=== PATIENT | female | born 1960 | race Caucasian/White ===

== ENCOUNTER 2017-01-11 12:15 | Inpatient (IN) | payer BC, OTHER ==
[~2017-01-11] VITALS: Ht 165.1 cm; Wt 56.7 kg
[~2017-01-11 12:15] MED LIST: AMLO10TA2 PO; Metoprolol Tartrate PO; VALS160T2 PO
[2017-01-11] MEDS ORDERED: MAG HYDROX/AL HYDROX/SIMETH 30 ML LIQUID UDC PO PRN (15:00)
[2017-01-11] MEDS ORDERED: THIAMINE HCL 200 MG/2 ML VIAL IM ONE (15:00)
[2017-01-11] MEDS ORDERED: LORAZEPAM 1 MG TABLET PO PRN ×2 (15:00)
[2017-01-11] MEDS ORDERED: LOPERAMIDE HCL 2 MG CAPSULE PO PRN ×2 (15:00)
[2017-01-11] MEDS ORDERED: MIRALAX 17 GM POWD.PACK PO PRN (15:00)
[2017-01-11] MEDS ORDERED: ACETAMINOPHEN 325 MG TABLET PO PRN (15:00)
[2017-01-11] MEDS ORDERED: ONDANSETRON ODT 4 MG TAB.RAPDIS SL PRN (15:00)
[2017-01-11] MEDS ORDERED: MAGNESIUM HYDROXIDE 30 ML LIQUID UDC PO PRN (15:00)
[2017-01-11] MEDS ORDERED: ONDANSETRON 4 MG/2 ML VIAL IM PRN (15:00)
[2017-01-11] MEDS ORDERED: LORAZEPAM 2 MG/1 ML VIAL IM PRN (15:00)
[2017-01-11] MEDS ORDERED: CLONIDINE HCL 0.1 MG TABLET PO PRN (15:00)
--- NOTE | 2017-01-11 15:00 | NUR ---
PRE-ADMISSION Pt is in intake office, pt reports relapsing 4 days ago. Pt reports drinking 750ml of wine daily, last this was 1000 01/11/17. Pt has clear speech, A/O x2 and stable to come on unit. V/S are wnl. To continue assessment when pt is on unit.
--- NOTE | 2017-01-11 15:15 | NUR ---
ADMISSION NOTE VS: BP: 125/68 HR:/110, SpO2: 99% RA, RR: 18, Temp: 98.2 Pain:0/10 Height:5'5" Weight: 125lb Allergies: SHAMIKA Pt is a 56 y/o female admitted to [facility] on 01/11/17 at 1510. Pt is under the care of for ETOH withdrawals. Pt reports relapsing 4 days ago due to a job loss. Pt denies suicidal and homicidal ideations at this time. Pt denies Chest Pain and SOB, RR even and unlabored. Patient did not bring any home medications. Pt reports living alone but has a support system . Upon assessment pt's skin has abrasion on left arm and on right wen related to a fall prior to admission. CIWA is 4, mild tremors and anxiety noted. Alert and oriented x4. Pt is Full Code. VS WNL, Regular Diet. Pt denies having any seizures in the past . Pt denies having a PCP at this time. Breathing is even and unlabored, SpO2 is 98% on RA. Pt ambulates with steady gait. Patient denies smoking cigarettes. UDS is positive for benzos and blood alcohol level is 0.17%. Pt reports being in the ER 2 days ago where she received Librium. All needs have been met. Pt has been oriented to the room and the unit. All safety measures in place per hospital policy. Bed in lowest position, side rails up x2 and padded, call-light within reach. Pt is on PRNs only. Will continue to monitor. Substance Abuse: ETOH: 1 bottle (750 ml) champagne daily for the past 4 days, pt reports drinking 185ml of chardonnay prior to admission.
[2017-01-11 15:31] LABS: BILIRUBIN,TOTAL 0.2 mg/dL (0.2-1.0); CREATININE 0.9 mg/dL (0.6-1.3); MAGNESIUM 2.1 mg/dL (1.8-2.4); POTASSIUM 4.8 mmol/L (3.5-5.1); TOTAL PROTEIN, SERUM 7.6 g/dL (6.4-8.2)
[2017-01-11 15:37] LABS: BASOPHILS % (AUTO) 0.5 % (0.0-2.0); EOSINOPHILS # (AUTO) 0.1 K/uL (0.0-0.7); EOSINOPHILS % (AUTO) 1.5 % (0.0-7.0); HEMATOCRIT 45.6 % (37-47); HEMOGLOBIN 15.3 G/DL (12.0-16.0); LYMPHOCYTES % (AUTO) 33.4 % (20.5-51.5); MEAN CORPUSCULAR HEMOGLOBIN 30.1 UUG (27.0-31.0); MEAN CORPUSCULAR HGB CONC 34 g/dL (32.0-37.0); MEAN CORPUSCULAR VOLUME 89.5 FL (81.0-99.0); MONOCYTES # (AUTO) 0.4 K/UL (0.1-1.30); MONOCYTES % (AUTO) 6.6 % (0.0-11.0); NEUTROPHILS # (AUTO) 3.5 K/UL (1.8-8.9); PLATELET COUNT (AUTO) 310 K/UL (150-450); RED BLOOD CELL COUNT(AUTO) 5.09 MIL/UL (4.2-5.4)
[2017-01-11 15:50] LABS: *URINE HCG, QUAL NEGATIVE (NEGATIVE)
[2017-01-11 16:07] LABS: *AMPHETAMINE, URINE NEGATIVE (NEGATIVE); *BARBITURATE, URINE NEGATIVE (NEGATIVE); *CANNABINOID, URINE NEGATIVE (NEGATIVE); *COCCAINE, URINE NEGATIVE (NEGATIVE); *OPIATE, URINE NEGATIVE (NEGATIVE); *PHENCYCLIDINE SCREEN,URINE NEGATIVE (NEGATIVE)
[2017-01-11 16:08] VITALS: BP 124/75
--- NOTE | 2017-01-11 16:15 | NUR ---
PRN CLONIDINE PRN Clonidine administered for restlessness, pt c/o of chills, and sweats. Will reassess.
--- NOTE | 2017-01-11 19:30 | NUR ---
START OF SHIFT PATIENT IS A 56 YEAR OLD FEMALE ADMITTED TO [facility] ON 01-11-17 FOR ALCOHOL DETOX. SHE IS A FULL CODE, ON A REGULAR DIET, WITH NKA. ON FALL AND SEIZURE PRECAUTIONS. PAST MEDICAL HISTORY OF MVP, AND DEPRESSION. PATIENT LAST CIWA 4 AT 1600. SAFETY MEASURES IN PLACE. BED LOCKED AND IN LOWEST POSITION WITH CALL LIGHT WITHIN REACH. REPORT RECEIVED FROM AM NURSE.
[2017-01-11] MEDS: IBUPROFEN 400 MG TABLET PO PRN (19:35)
--- NOTE | 2017-01-11 19:35 | NUR ---
PRN MEDICATION MOTRIN 400 MG PO GIVEN FOR HEADACHE OF A 6 OUT OF 10 AT 1935. EFFECT PENDING.
[2017-01-11] MEDS ORDERED: ALBU8HFA4 PO (19:43)
--- NOTE | 2017-01-11 19:45 | NUR ---
ASSESSMENT PATIENT WITH NOTED COUGHING. PATIENT REPORTS PMH OF ASTHMA. STATES SHE TAKES VENTOLIN INHALER AT HOME 2 PUFFS Q 4 HOURS PRN. LUNGS ASSESSED WITH EXPIRATORY WHEEZE IN ALL BASES POSTERIOR AND ANTERIOR. SPO2 99 % ON RA. CHARGE NURSE AND MD NOTIFIED.
[2017-01-11 20:00] VITALS: BP 120/87
[2017-01-11] MEDS ORDERED: PATIENT MAY USE OWN MED- MD OK INH PRN (20:15)
[2017-01-11] MEDS: diphenhydrAMINE 50 MG CAPSULE PO PRN (20:31)
--- NOTE | 2017-01-11 20:31 | NUR ---
PRN MEDICATION PATIENT RECEIVED IMMODIUM 4 MG PO AT 2030 FOR LIQUID STOOL LARGE AMOUNT. PATIENT RECEIVED BENADRYL 50 MG PO AT 2030 FOR INSOMNIA. EFFECTIVENESS PENDING
--- NOTE | 2017-01-11 20:35 | NUR ---
REASSESSMENT OF PATIENT PATIENT REPORTS DECREASE IN HEADACHE TO A 2 OUT OF 10. MOTRIN WITH NOTED EFFECTIVENESS.
[2017-01-11] MEDS ORDERED: ALBUTEROL SULFATE 8 GM HFA.AER.AD IH PRN (20:45)
[2017-01-11] MEDS ORDERED: LORAZEPAM 1 MG TABLET PO ONE (21:00)
--- NOTE | 2017-01-11 21:31 | NUR ---
REASSESSMENT OF PATIENT PATIENT WITH NO FURTHER EPISODES OF LIQUID STOOL/DIARRHEA. IMMODIUM WITH NOTED EFFECTIVENESS. PATIENT REMAINS AWAKE BUT STATES SHE IS BEGINNING TO FEEL SLEEPY. BENADRYL WITH FAIR EFFECT NOTED
--- NOTE | 2017-01-11 22:08 | NUR ---
RESPIRATORY THERAPY PRESENT WITH PATIENT
[2017-01-11] MEDS: ALBUTEROL SULFATE 2.5 MG/3 ML NEBU NEB PRN (22:09)
[2017-01-12] VITALS: BP 104/67
--- NOTE | 2017-01-12 | NUR ---
CIWA DEFERRED PATIENT RESTING COMFORTABLY IN BED WITH EYES CLOSED. VITAL SIGNS STABLE. CIWA DEFERRED FOR SLEEP.
[2017-01-12 04:00] VITALS: BP_SYST 101; BP_SYST 114; BP_DIAS 51; BP_DIAS 76
--- NOTE | 2017-01-12 04:00 | NUR ---
CIWA DEFERRED PATIENT VS AT 0400 BP 114/76, P 75, R 20, SPO2 99% ON RA. . PATIENT WITH BREATHING EVEN AND UNLABORED. NO NOTED SOB, WHEEZE. NO NOTED COUGHING. CIWA DEFERRED FOR SLEEP
[2017-01-12 06:05] LABS: HEPATITIS B SURFACE AG Negative (Negative)
--- NOTE | 2017-01-12 06:39 | NUR ---
END OF SHIFT PATIENT IS A 56 YEAR OLD FEMALE ADMITTED TO [facility] ON 01-11-17 FOR ALCOHOL DETOX. SHE IS A FULL CODE, ON A REGULAR DIET, WITH NKA. ON FALL AND SEIZURE PRECAUTIONS. PAST MEDICAL HISTORY OF MVP, AND DEPRESSION. VS AT 2000 120/87, P 110, SPO2 99% ON RA, R 18, T 98.7. PATIENT CIWA 10. PATIENT RECEIVED ATIVAN 2 MG X 1 TIME DOSE WELL BENADRYL 50 MG PO FOR INSOMNIA. PATIENT WITH NOTED EXPIRATORY WHEEZE IN ALL LUNG BASES POSTERIOR AND ANTERIOR WELL COUGH WITHOUT PRODUCTION. MD NOTIFIED. PATIENT WAS ORDERED ALBUTEROL NEBULIZER TREATMENT. RESPIRATORY THERAPIST ADMINISTERED NEBULIZER TREATMENT WITH GOOD EFFECT NOTED. PATIENT WITH NO FURTHER WHEEZING NOTED, AND REPORTED FEELING IMMEDIATE RELIEF. PATIENT VS AT 0000 BP 104/67, P 88, R 16, SPO2 94% ON RA, T 98.6. CIWA DEFERRED FOR SLEEP. PATIENT VS AT 0400 BP 114/76, P 75, R 20, SPO2 99% ON RA. CIWA DEFERRED FOR SLEEP. PATIENT INTAKE 1105 ML, OUTPUT 2 VOIDS, SLEPT TOTAL OF 7 HOURS. SAFETY MEASURES IN PLACE. BED LOCKED AND IN LOWEST POSITION WITH CALL LIGHT WITHIN REACH. REPORT GIVEN TO AM NURSE.
[2017-01-12] MEDS: ALBUTEROL SULFATE 2.5 MG/3 ML NEBU NEB PRN ×4 (07:03→20:18)
--- NOTE | 2017-01-12 07:14 | NUR ---
Start of shift note SBAR report rcv'd. Pt was admitted for ETOH dependence. Pt is a full code, on a regular diet, denies any allergies. Pt has a PMHx of a mitral valve prolapse, depression, and asthma, requiring multiple PRN breathing treatments. pt is on PRN medications to manage her s/s of withdrawal. Pt is currently resting in bed, pt has no complaints at this time. Will continue to monitor pt. All needs addressed at this time.
[2017-01-12 08:00] VITALS: BP 111/72
--- NOTE | 2017-01-12 08:15 | NUR ---
PRN administration Pt has a CIWA of 6, administered PRN ativan per MD order.
[2017-01-12] MEDS: THIAMINE HCL 100 MG TABLET PO SCH (08:17)
[2017-01-12] MEDS: MULTIVITAMINS,THERAPEUTIC TABLET PO SCH (08:17)
[2017-01-12] MEDS: FOLIC ACID 1 MG TABLET PO SCH (08:17)
--- NOTE | 2017-01-12 08:25 | NUR ---
MD communication Notified Dr Vera that pt has wheezing in bilateral lungs, SpO2 100% on RA, mild cough noted, pt is afebrile. Will continue to monitor pt.
[2017-01-12] MEDS ORDERED: TUBERCULIN,PURIF.PROT.DERIV. 5 TU/0.1 ML TEST ID ONE (09:00)
--- NOTE | 2017-01-12 09:15 | NUR ---
Reassessment Pt has a CIWA of 2 and states that the ativan was effective in "making me feel better". Will continue to monitor pt. All needs addressed at this time.
[2017-01-12] MEDS: VENLAFAXINE XR 75 MG CAP.SR.24H PO SCH (10:54)
[2017-01-12 12:00] VITALS: BP 121/84
[2017-01-12] MEDS ORDERED: NALT50TA PO (14:38)
[2017-01-12] MEDS ORDERED: ACAM333T8 PO (14:38)
[2017-01-12] MEDS ORDERED: AZITHROMYCIN 250 MG TABLET PO ONE (15:00)
[2017-01-12 16:00] VITALS: BP 128/80
--- NOTE | 2017-01-12 16:28 | NUR ---
Therapist prompted client about group times. Client stated she didn't go to groups today because she has bronchitis and is not feeling well.
--- NOTE | 2017-01-12 19:22 | NUR ---
End of shift Pt was admitted for ETOH dependence. Pt has a PMHx of a mitral valve prolapse, depression, and asthma, requiring multiple PRN breathing treatments. Pt is a full code, on a regular diet, denies any allergies. Pt is on PRN medications to manage her s/s of withdrawal. Pt required one PRN ativan in the morning with effectiveness. Pt is ambulating around the unit, pt has no complaints at this time. SBAR report given to oncoming nurse.
--- NOTE | 2017-01-12 19:30 | NUR ---
START OF SHIFT PATIENT IS A 56 YEAR OLD FEMALE ADMITTED TO [facility] ON 01-11-17 FOR ALCOHOL DETOX. SHE IS A FULL CODE, ON A REGULAR DIET, WITH NKA. ON FALL AND SEIZURE PRECAUTIONS. PAST MEDICAL HISTORY OF MVP, ASTHMA AND DEPRESSION. PATIENT LAST CIWA 3 AT 1600. PATIENT STARTED ON ZITHROMAX FOR URI. SAFETY MEASURES IN PLACE. BED LOCKED AND IN LOWEST POSITION WITH CALL LIGHT WITHIN REACH. REPORT RECEIVED FROM AM NURSE.
[2017-01-12 20:00] VITALS: BP 134/83
[2017-01-12] MEDS: diphenhydrAMINE 50 MG CAPSULE PO PRN (21:07)
[2017-01-12] MEDS: IBUPROFEN 400 MG TABLET PO PRN (21:07)
--- NOTE | 2017-01-12 21:07 | NUR ---
PRN MEDICATION BENADRYL 50 MG PO GIVEN AT 2106 FOR INSOMNIA. PATIENT GIVEN IBUPROFEN 400 MG PO AT 2106 FOR C/O BACK PAIN 4 OUT OF 10. EFFECT PENDING
--- NOTE | 2017-01-12 22:07 | NUR ---
REASSESSMENT OF PATIENT BENADRYL 50 MG PO GIVEN AT 2106 FOR INSOMNIA. PATIENT REASSESSED AFTER ONE HOUR WITH NOTED FAIR EFFECT. PATIENT STATES SHE IS FALLING ASLEEP, FEELS TIRED. PATIENT GIVEN IBUPROFEN 400 MG PO AT 2106 FOR C/O BACK PAIN 4 OUT OF 10. REASSESSED AFTER ONE HOUR. PATIENT REPORTS DECREASED BACK PAIN TO A 1 OUT OF 10.
--- NOTE | 2017-01-13 | NUR ---
CIWA DEFERRED/VITAL SIGNS REFUSED 0000 CIWA DEFERRED FOR SLEEP. PATIENT REFUSED VITAL SIGNS.
--- NOTE | 2017-01-13 04:14 | NUR ---
CIWA DEFERRED/VITAL SIGNS REFUSED 0400 CIWA DEFERRED FOR SLEEP. PATIENT REFUSED VITAL SIGNS.
--- NOTE | 2017-01-13 06:48 | NUR ---
END OF SHIFT PATIENT IS A 56 YEAR OLD FEMALE ADMITTED TO [facility] ON 01-11-17 FOR ALCOHOL DETOX. COMPLETED DETOX WITH ONLY PRN ATIVAN IN PLACE. SHE IS A FULL CODE, ON A REGULAR DIET, WITH NKA. ON FALL AND SEIZURE PRECAUTIONS. PAST MEDICAL HISTORY OF MVP, ASTHMA AND DEPRESSION. PATIENT STARTED ON ZITHROMAX FOR URI. RECEIVED ALBUTEROL NEB TREATMENT AT [address] PATIENT REPORTS FEELING MUCH BETTER. LUNGS CTA IN ALL BASES. PATIENT RECEIVED MOTRIN 400 MG PO AT 210 FOR BACK PAIN WITH GOOD EFFECT, PATIENT RECEIVED BENADRYL 50 MG PO AT 2107 FOR INSOMNIA WITH GOOD EFFECT. PATIENT ANXIOUS REGARDING DISCHARGE. VS AT 2000 BP 134/83, P 81, R 18, SPO2 97% ON RA, T 98.2 CIWA 3. VS AT 0000 AND 0400 REFUSED. CIWA DEFERRED. [id number] ML OUTPUT 1 VOID. SLEPT TOTAL OF 5 HOURS. SAFETY MEASURES IN PLACE. BED LOCKED AND IN LOWEST POSITION WITH CALL LIGHT WITHIN REACH. REPORT GIVEN TO AM NURSE.
--- NOTE | 2017-01-13 07:48 | NUR ---
Start of shift note; Received report from night nurse. Patient is a 56 year old female admitted on 01/11/17 for ETOH dependence. Patient reported history of mitral valve prolapse, depression, asthma, appendectomy. Patient is on full code status, on regular diet. Patient's last CIWA score is 3. PRN Benadryl given last night, noted to be effective. Patient is on fall and seizure precaution. Bed in lowest position, call light within reach. Will continue to monitor patient.
[2017-01-13 08:00] VITALS: BP 140/90
[2017-01-13] MEDS: FOLIC ACID 1 MG TABLET PO SCH (08:06)
[2017-01-13] MEDS: VENLAFAXINE XR 75 MG CAP.SR.24H PO SCH (08:06)
[2017-01-13] MEDS: LORATADINE 10 MG TABLET PO SCH (08:06)
[2017-01-13] MEDS: MULTIVITAMINS,THERAPEUTIC TABLET PO SCH (08:06)
[2017-01-13] MEDS: AZITHROMYCIN 250 MG TABLET PO SCH (08:06)
[2017-01-13] MEDS: THIAMINE HCL 100 MG TABLET PO SCH (08:06)
--- NOTE | 2017-01-13 10:04 | NUR ---
Respiratory therapist; Patient was seen by respiratory therapist, breathing treatment was given to patient. Will continue to monitor patient.
[2017-01-13] MEDS: ALBUTEROL SULFATE 2.5 MG/3 ML NEBU NEB PRN (10:09)
[2017-01-13 12:00] VITALS: BP 137/89
[2017-01-13] MEDS ORDERED: LORA-114 PO (14:28)
[2017-01-13] MEDS ORDERED: ALBU8HFA4 PO (14:28)
[2017-01-13] MEDS ORDERED: FAMO20TA8 PO (14:28)
[2017-01-13] MEDS ORDERED: PRED20TA PO (14:28)
[2017-01-13] MEDS ORDERED: AZIT250T6 PO (14:28)
[2017-01-13] MEDS ORDERED: VENL75CA56 PO (14:28)
[2017-01-13] MEDS ORDERED: IPRATROPIUM BROMIDE 0.5 MG/2.5 ML NEBU NEB PRN (14:30)
[2017-01-13] MEDS ORDERED: MIRTAZAPINE 15 MG TABLET PO PRN (14:30)
[2017-01-13 16:00] VITALS: BP 130/89
[2017-01-13] MEDS: predniSONE 20 MG TABLET PO SCH (16:21)
--- NOTE | 2017-01-13 18:35 | NUR ---
End of shift note; Patient is AOX4. Patient is a 56 year old female admitted on 01/11/17 for ETOH dependence. Patient reported history of mitral valve prolapse, depression, asthma, appendectomy. Patient is on full code status, on regular diet. Patient is medically cleared for discharge tomorrow. Patient completed taper without any adverse reactions. Medications were effective in reducing withdrawal symptoms. Met all needs.
--- NOTE | 2017-01-13 19:37 | NUR ---
START OF SHIFT PATIENT IS A 56 YEAR OLD FEMALE ADMITTED TO [facility] ON 01-11-17 FOR ALCOHOL DETOX. SHE IS A FULL CODE, ON A REGULAR DIET, WITH NKA. ON FALL AND SEIZURE PRECAUTIONS. PAST MEDICAL HISTORY OF MVP, ASTHMA AND DEPRESSION. PATIENT LAST CIWA 3 AT 1600. PATIENT STARTED ON PREDNISONE FOR URI AND ASTHMA EXACERBATION AND REMAINS ON ZITHROMAX (Z PACK). PATIENT REPORTS FEELING MUCH BETTER AT CHANGE OF SHIFT. STATES SHE IS LOOKING FOR [facility] TO DISCHARGE AND FEELS SHE HAS GOOD AFTERCARE PLANS IN PLACE. SAFETY MEASURES IN PLACE. BED LOCKED AND IN LOWEST POSITION WITH CALL LIGHT WITHIN REACH. REPORT RECEIVED FROM AM NURSE.
[2017-01-13 20:00] VITALS: BP 140/87
--- NOTE | 2017-01-13 21:16 | NUR ---
PRN MEDICATION REMERON 15 MG PO ADMINISTERED AT 2115 FOR INSOMNIA. EFFECT PENDING.
--- NOTE | 2017-01-13 22:14 | NUR ---
REASSESSMENT OF PATIENT PATIENT REASSESSED ONE HOUR AFTER REMERON 15 MG PO ADMINISTERED FOR INSOMNIA. PATIENT RESTING IN BED EYES CLOSED, BREATHING EVEN, UNLABORED.
--- NOTE | 2017-01-14 00:05 | NUR ---
CIWA DEFERRED. VITAL SIGNS REFUSED PATIENT EFUSED VS AT 0000 REPORTS WANTING TO SLEEP. CIWA DEFERRED FOR SLEEP.
--- NOTE | 2017-01-14 04:00 | NUR ---
CIWA DEFERRED. VITAL SIGNS REFUSED PATIENT REFUSED VS AT 0400. CIWA DEFERRED FOR SLEEP.
--- NOTE | 2017-01-14 06:49 | NUR ---
END OF SHIFT PATIENT IS A 56 YEAR OLD FEMALE ADMITTED TO [facility] ON 01-11-17 FOR ALCOHOL DETOX. COMPLETED DETOX WITH ONLY PRN ATIVAN IN PLACE. SHE IS A FULL CODE, ON A REGULAR DIET, WITH NKA. ON FALL AND SEIZURE PRECAUTIONS. PAST MEDICAL HISTORY OF MVP, ASTHMA AND DEPRESSION. PATIENT STARTED PREDNISONE PO FOR EXACERBATION OF ASTHMA AND REMAINS ON 5 DAY ZITHROMAX FOR URI. PATIENT WITH MILD EXPIRATORY WHEEZE IN POSTERIOR LUNG BASES. PATIENT RECEIVED PRN REMERON 15 MG PO FOR INSOMNIA WITH GOOD EFFECT. VS AT 2000 BP140/87, P 89, R 16, SPO2 97% ON RA, T 98.2 CIWA 2. VS AT 0000 AND 0400 REFUSED. CIWA DEFERRED. INTAKE 2100 ML, OUTPUT 4 VOID. SLEPT TOTAL OF 8 HOURS. SAFETY MEASURES IN PLACE. BED LOCKED AND IN LOWEST POSITION WITH CALL LIGHT WITHIN REACH. REPORT GIVEN TO AM NURSE.
[2017-01-14 08:00] VITALS: BP 145/95
[2017-01-14] MEDS: VENLAFAXINE XR 75 MG CAP.SR.24H PO SCH (08:33)
[2017-01-14] MEDS: AZITHROMYCIN 250 MG TABLET PO SCH (08:33)
[2017-01-14] MEDS: MULTIVITAMINS,THERAPEUTIC TABLET PO SCH (08:33)
[2017-01-14] MEDS: THIAMINE HCL 100 MG TABLET PO SCH (08:33)
[2017-01-14] MEDS: FOLIC ACID 1 MG TABLET PO SCH (08:33)
[2017-01-14] MEDS: LORATADINE 10 MG TABLET PO SCH (08:33)
[2017-01-14] MEDS: predniSONE 20 MG TABLET PO SCH (08:33)
--- NOTE | 2017-01-14 08:43 | NUR ---
START OF SHIFT Received report from overnight houseperson nurse. Patient is 56 year old female admitted for medically supervised withdrawal from alcohol. Patient is full code with NKA. On assessment this AM: CIWA: 1. Denies SOB, chest pain. Patients vitals signs WNL. Reports mild anxiety. Patient has abrasion, dry scabs on RLE and LFA, open to air. Med compliant with AM meds. No PRN given. Patient has pending discharge today. Will continue to monitor patient.
[2017-01-14] MEDS ORDERED: FAMOTIDINE 20 MG TABLET PO SCH (09:00)
--- NOTE | 2017-01-14 09:25 | NUR ---
DISCHARGE NOTE: Patient is in stable condition, vital signs WNL. PPD skin test read on LFA (negative result). Patient is alert and oriented X4. Patient denies any suicidal or homicidal ideations. Patient was discharged from [facility] on 01/14/17 at 09:25am. Patient was picked up and left the facility with all her belongings and prescriptions.
== END 2017-01-14 09:25 | disposition home or self-care (01) | DRG 895 ==
LOC: SRC 14:34
PROVIDERS: ADMIT Internal Medicine; ATTEND Internal Medicine
PROC: HZ2ZZZZ Detoxification Services for Substance Abuse Treatment (ICD-10-PCS; principal; 2017-01-11)
PROC: HZ31ZZZ Individual Counseling for Substance Abuse Treatment, Behavioral (ICD-10-PCS; 2017-01-14)
DX: F10.230 Alcohol dependence with withdrawal, uncomplicated (principal); K70.10 Alcoholic hepatitis without ascites; F33.1 Major depressive disorder, recurrent, moderate; J45.41 Moderate persistent asthma with (acute) exacerbation; Y90.6 Blood alcohol level of 120-199 mg/100 ml; Z82.49 Family history of ischemic heart disease and other diseases of the circulatory system; Z81.1 Family history of alcohol abuse and dependence; F10.220 Alcohol dependence with intoxication, uncomplicated; J20.9 Acute bronchitis, unspecified; F41.9 Anxiety disorder, unspecified; I10 Essential (primary) hypertension; Z79.899 Other long term (current) drug therapy; F17.200 Nicotine dependence, unspecified, uncomplicated
CPT/HCPCS: 36415; 80307; 80346; 83735; 84703; 85025; 86580; 86592; 86705; 86803; 87340; 87806; 94640; 94664; G0480; J3411; J7512; Q0144; Q0163

== ENCOUNTER 2017-02-28 09:37 | Inpatient (IN) | payer BC, OTHER ==
[~2017-02-28] VITALS: Ht 165.1 cm; Wt 68.0 kg
[2017-02-28] VITALS: BP 132/91
[~2017-02-28 09:37] MED LIST changes: +ACAM333T8 PO; +ALBU8HFA4 PO; -AMLO10TA2 PO; +AZIT250T6 PO; +FAMO20TA8 PO; +LORA-114 PO; -Metoprolol Tartrate PO; +NALT50TA PO; +PRED20TA PO; -VALS160T2 PO; +VENL75CA56 PO
--- NOTE | 2017-02-28 11:15 | NUR ---
INTAKE ASSESSMENT Received patient in intake. She is AOX4, stable condition. Vital signs WNL. Patient denies any history of seizure. Patient reports NKA. Patient brought home medications with her. Explained unit protocols and patient verbalized understanding. Will admit patient upon admission to third floor.
[2017-02-28 11:20] VITALS: BP 141/83
--- NOTE | 2017-02-28 11:20 | NUR ---
ADMISSION NOTE Allergy- NKA/NKFA Status-Full code Height 5'5 Weight-150 lb PCP-Coleman Childress Vital Signs- B/P-141/83,HR-114, R-18, TEMP-98.2, SPO2-99%, Pain 0/10 CIWA-4 Patient is a 56 year old female admitted to [facility] to detox center for ETOH dependence under the care of Dr. Vera. Urine provided by patient for urine screen and thorough body and belonging check done by SAW STRAIGHTENER. Patient appears anxious and agitated, . Patient is cooperative during nursing assessment. Upon admission Patient is noted to be flat, intoxicated,but cooperative with admission. Patient denies chest pain or SOB. Lung sounds clear with no cough noted. Bowel sounds present in all 4 quadrants. BUE and BLE noted WNL with no edema present. Pt reported PMH of Asthma,Appendectomy. Upon skin assessment pt noted with bruises in right and left arm, and left thigh skin intact to the sites. Patient denies any fall. Patient noted with unsteady gait and placed on 1:1. Patient brought in home medications. Patient denies SI/HI ideations. Pt AOx4. Patient reported first time in treatment. Patient reports of 9 months of sobriety from July 2016 to February 2017. Pt reported s/s of withdrawal anxiety, agitation. Pt reported Substance abuse history as: ETOH(VODKA)- Patient reported drinking last 3 days 50ML of 4 bottles of Vodka daily, and last used was 02/28/17 at 1030 2 bottles of Vodka 50ml. Educated patient regarding unit policies and protocols, patient verbalized understanding. Patient oriented to unit by SAW STRAIGHTENER. Fall and seizure precautions in place. Safety measures in place, Call light within reach. Will cont to monitor.
[2017-02-28] MEDS ORDERED: [UNRECOGNIZED DRUG - SUPPLY] (12:04)
[2017-02-28] MEDS ORDERED: DIPH25CA83 PO (12:04)
[2017-02-28] MEDS ORDERED: POLY15DR33 OP (12:04)
[2017-02-28] MEDS ORDERED: WART REMOVER (12:04)
[2017-02-28] MEDS ORDERED: LORAZEPAM 1 MG TABLET PO PRN (12:45)
[2017-02-28] MEDS ORDERED: DICYCLOMINE HCL 20 MG TABLET PO PRN (12:45)
[2017-02-28] MEDS ORDERED: LORAZEPAM 2 MG/1 ML VIAL IM PRN (12:45)
[2017-02-28] MEDS ORDERED: MIRALAX 17 GM POWD.PACK PO PRN (12:45)
[2017-02-28] MEDS ORDERED: THIAMINE HCL 200 MG/2 ML VIAL IM ONE (12:45)
[2017-02-28] MEDS ORDERED: ONDANSETRON 4 MG/2 ML VIAL IM PRN (12:45)
[2017-02-28] MEDS ORDERED: LOPERAMIDE HCL 2 MG CAPSULE PO PRN ×2 (12:45)
[2017-02-28] MEDS ORDERED: PATIENT MAY USE OWN MED- MD OK INH PRN (12:45)
[2017-02-28] MEDS ORDERED: ACETAMINOPHEN 325 MG TABLET PO PRN (12:45)
[2017-02-28] MEDS ORDERED: MAG HYDROX/AL HYDROX/SIMETH 30 ML LIQUID UDC PO PRN (12:45)
[2017-02-28] MEDS ORDERED: ONDANSETRON ODT 4 MG TAB.RAPDIS SL PRN (12:45)
[2017-02-28 12:54] LABS: *URINE HCG, QUAL NEGATIVE (NEGATIVE)
[2017-02-28 13:04] LABS: *AMPHETAMINE, URINE NEGATIVE (NEGATIVE); *BARBITURATE, URINE NEGATIVE (NEGATIVE); *CANNABINOID, URINE NEGATIVE (NEGATIVE); *COCCAINE, URINE NEGATIVE (NEGATIVE); *OPIATE, URINE NEGATIVE (NEGATIVE); *PHENCYCLIDINE SCREEN,URINE NEGATIVE (NEGATIVE)
[2017-02-28 13:09] LABS: BASOPHILS % (AUTO) 0.3 % (0.0-2.0); EOSINOPHILS % (AUTO) 0.2 % (0.0-7.0); HEMATOCRIT 40.5 % (31.2-41.9); HEMOGLOBIN 13.8 g/dL (10.9-14.3); LYMPHOCYTES # (AUTO) 1.3 K/uL (20.0-40.0); LYMPHOCYTES % (AUTO) 19.5 % (20.5-51.5); MEAN CORPUSCULAR HEMOGLOBIN 30.4 uug (24.7-32.8); MEAN CORPUSCULAR HGB CONC 34 g/dL (32.3-35.6); MEAN CORPUSCULAR VOLUME 89.2 fL (75.5-95.3); MONOCYTES # (AUTO) 0.8 K/uL (2.0-10.0); MONOCYTES % (AUTO) 12.2 % (0.0-11.0); NEUTROPHILS # (AUTO) 4.5 K/uL (1.8-8.9); NEUTROPHILS % (AUTO) 67.8 % (38.5-71.5); PLATELET COUNT (AUTO) 249 K/uL (179-408); RED BLOOD CELL COUNT(AUTO) 4.54 MIL/uL (3.63-4.92); WHITE BLOOD COUNT (AUTO) 6.6 K/uL (3.8-11.8)
[2017-02-28 13:21] LABS: ALANINE AMINOTRANSFERASE 68 U/L (14-59); ALKALINE PHOSPHATASE 100 U/L (50-136); AMYLASE 63 U/L (25-115); ASPARTATE AMINOTRANSFERASE 87 U/L (15-37); BILIRUBIN,TOTAL 0.6 mg/dL (0.2-1.0); CARBON DIOXIDE 28 mmol/L (21-32); CHLORIDE 99 mmol/L (98-107); GLUCOSE 124 mg/dL (74-106); POTASSIUM 3.5 mmol/L (3.5-5.1); UREA NITROGEN, BLOOD 15 mg/dL (7-18)
[2017-02-28 13:22] LABS: ETHANOL < 3 MG/DL (0-0)
[2017-02-28] MEDS ORDERED: ALBUTEROL SULFATE 2.5 MG/3 ML NEBU NEB PRN (13:45)
[2017-02-28] MEDS: LORAZEPAM 1 MG TABLET PO PRN ×2 (14:27→20:32)
--- NOTE | 2017-02-28 14:27 | NUR ---
PRN ATIVAN Patient c/o anxiety, agitation, shakes CIWA score noted 6. Patient was given PRN Ativan 1mg Po as ordered. Will cont to monitor and reassess.
[2017-02-28] MEDS: IBUPROFEN 600 MG TABLET PO PRN ×2 (14:39→20:33)
--- NOTE | 2017-02-28 14:39 | NUR ---
PRN MOTRIN Patient c/o of back pain 08/19, Patient medicated with PRN Motrin 600mg Po as ordered. Will cont to monitor and reassess.
--- NOTE | 2017-02-28 15:27 | NUR ---
ATIVAN REASSESSMENT Upon reassessment pt reported Ativan was effective in controlling her withdrawal symptoms with evidence by low CIWA score 4.
--- NOTE | 2017-02-28 15:39 | NUR ---
MOTRIN REASSESSMENT Upon reassessment pt reported Motrin was effective in controlling her back pain 05/22.
--- NOTE | 2017-02-28 18:57 | NUR ---
END OF SHIFT NOTE Patient admitted for ETOH dependence. Patient currently not on any taper but PRN'S available for increased s/s of withdrawal. during shift pt received PRN Ativan 1mg and Motrin 600mg noted to be effective. Pt compliant with medication and plan of care. Pt Encouraged Po fluids as tolerated. Pt's last CIWA-4 at 1600. Vital signs WNL. All needs met. Safety measures in place, call light within reach. Pt endorsed to night nurse in stable condition.
--- NOTE | 2017-02-28 19:55 | NUR ---
Start of Shift Pt is a 56 year old female admitted for ETOH dependence, PRN available for s/s of withdrawal. Pt reported consuming Vodka 4 bottles of 50ml daily for the past 3 days. Pt relapsed on 02/26/2017. PMH: Asthma. NKA, regular diet, fall/seizure precautions and full code. Upon assessment, pt reports anxiety, with chills throughout body, skin noted with sweat, face flushed, tremors visible with headache, respirations even/unlabored, denies SOB/chest pain, denies n/v/d, Pt is on 1:1 for safety. Medication due, safety measures in place, call light within reach, side rails up x2, bed locked and in low position. Will continue to monitor.
[2017-02-28 20:00] VITALS: BP 138/90
--- NOTE | 2017-02-28 20:00 | NUR ---
PRN Administration Pt reports anxiety, irritability, with chills throughout body, skin noted with sweat, face flushed, and tremors visible with headache. CIWA 9. Pt is on 1:1 for safety. Safety measures in place, call light within reach, side rails up x2, bed locked and in low position. Will continue to monitor. Addendum: 03/01/17 at 0108 by RAMY AHUMADA RN Motrin 600mg PRN administered for headache.
--- NOTE | 2017-02-28 21:00 | NUR ---
PRN Reassessment CIWA 5. Pt reports relief of headache. Needs met, safety measures in place, will continue to monitor
[2017-02-28] MEDS: diphenhydrAMINE 50 MG CAPSULE PO PRN (21:21)
--- NOTE | 2017-02-28 21:21 | NUR ---
PRN Administration Pt requests aid for sleep. Benadryl 50mg PRN administered. Safety measures in place, will continue to monitor.
--- NOTE | 2017-02-28 22:21 | NUR ---
PRN Reassessment Pt is sleeping, respirations even/unlabored, sitter at bedside. Safety measures in place, will continue to monitor.
[2017-03-01] VITALS (7 sets, daily range): BP systolic 116–140; BP diastolic 71–102
--- NOTE | 2017-03-01 | NUR ---
CIWA deferred due to sleeping, to assess while pt is awake as ordered. BP 132/91, pulse 96, resp 18, SpO2 97% room air, temp 98.1, no pain 0/10 Sitter at bedside, safety measures in place, will continue to monitor.
[2017-03-01] MEDS: LORAZEPAM 1 MG TABLET PO PRN (03:45)
--- NOTE | 2017-03-01 03:45 | NUR ---
PRN Administration BP 140/102, pulse 114. Pt is anxious, tremulous, skin sweaty/flushed, CIWA 8 Clonidine 0.1mg PRN and Ativan 1mg PRN administered. Sitter at bedside, safety measures in place, will continue to monitor.
[2017-03-01] MEDS: CLONIDINE HCL 0.1 MG TABLET PO PRN ×3 (03:46→23:03)
--- NOTE | 2017-03-01 04:45 | NUR ---
PRN Reassessment CIWA 5 BP 116/71, pulse 80, resp 16, SpO2 99% room air, temp 97.9 Needs met, safety measures in place, will continue to monitor.
--- NOTE | 2017-03-01 07:00 | NUR ---
End of Shift Pt is a 56 year old female admitted for ETOH dependence, PRN available for s/s of withdrawal. Pt reported consuming Vodka 4 bottles of 50ml daily for the past 3 days. Pt relapsed on 02/26/2017. PMH: Asthma. NKA, regular diet, fall/seizure precautions and full code. During shift, Pt reported anxiety, irritability, with chills throughout body, skin noted with sweat, face flushed, and tremors visible with headache CIWA 9. Ativan 1mg x2 PRN and Motrin 600mg PRN administered, effective. CIWA 9 decreased to CIWA 5. Bendaryl 50mg PRN administered for sleep, effective. Clonidine 0.1mg PRN administered for elevated BP 140/102 & pulse 114, BS decrease to BP 116/71 & pulse 80. Pt slept for 7 hours, intake of 796 ml PO, voids x3 and stool x0. Sitter at bedside, Safety measures in place, call light within reach, side rails up x2, bed locked and in low position. Endorsed to day shift nurse.
--- NOTE | 2017-03-01 07:53 | NUR ---
START OF SHIFT NOTE Received report from night nurse, 56 year old female admitted for ETOH dependence. Patient currently not on any taper but PRN'S available for increased s/s of withdrawal. Patient reported PMH of Asthma. Per endorsement pt received PRN Ativan 1mg x2, Motrin 600mg, Benadryl 50mg, Clonidine 0.1mg effective per night nurse, last CIWA-5, Slept for 7 hours. hours. Patient received awake, alert and oriented x4, Educated patient regarding plan of care for the day and medication regimen with good verbal understanding. Safety measures in place. call light with in reach, will continue to monitor.
[2017-03-01] MEDS: FOLIC ACID 1 MG TABLET PO SCH (08:27)
[2017-03-01] MEDS: MULTIVITAMINS,THERAPEUTIC TABLET PO SCH (08:27)
[2017-03-01] MEDS: THIAMINE HCL 100 MG TABLET PO SCH (08:27)
[2017-03-01] MEDS ORDERED: TUBERCULIN,PURIF.PROT.DERIV. 5 TU/0.1 ML TEST ID ONE (09:00)
[2017-03-01] MEDS ORDERED: INFLUENZA VACCINE 2017-2018 0.5 ML DISP.SYRIN IM ONE (12:45)
[2017-03-01] MEDS ORDERED: PNEUMOCOCCAL 23-VAL P-SAC VAC 0.5 ML VIAL IM ONE (12:45)
[2017-03-01] MEDS: SERTRALINE HCL 50 MG TABLET PO SCH (14:42)
--- NOTE | 2017-03-01 17:00 | NUR ---
PRN CLONIDINE Patient blood pressure noted 148/100, PRN Clonidine 0.1mg Po administered as ordered. Will cont to monitor and reassess.
--- NOTE | 2017-03-01 18:00 | NUR ---
CLONIDINE REASSESSMENT Patient blood pressure noted 132/88, medication effective.
[2017-03-01] MEDS ORDERED: SERT50TA12 PO (18:54)
--- NOTE | 2017-03-01 18:57 | NUR ---
END OF SHIFT NOTE Patient admitted for ETOH dependence. Patient currently not on any taper but PRN'S available for increased s/s of withdrawal. during shift pt received PRN Clonidine 0.1mg Po noted to be effective. Pt compliant with medication and plan of care. Pt Encouraged Po fluids as tolerated. Pt's last CIWA-3 at 1600. Vital signs WNL. Patient scheduled for discharge in AM. All needs met. Safety measures in place, call light within reach. Pt endorsed to night nurse in stable condition.
--- NOTE | 2017-03-01 20:00 | NUR ---
2000 Patient received awake, alert and lying quietly in her bed, watching television. Patient responds to nurse's greeting and introduction with eye contact and, " Hi, I'm okay and how are you"? Patient's color is tannish-pink and her skin is clean, warm, dry and intact. Patient is oriented to person, place, day, date, time and her personal situation. Patient states that she did not attend [facility] tonight, but she continues to eat her regular diet meal trays and take various fluids ad daniel with no gastric issues at this time. Patient denies any pain or other discomforts, but she states that she is having some 'family issues' presently, that are causing her to feel some anxiety. Patient did not wish to elaborate to nurse any further, regarding her anxiety. Vital signs are: 98.5-82-18 121/86, O2 Sat 100%, CIWA 3. Patient was admitted on 02/28/17 for Alcohol withdrawal and she is currently on PRN medications only, for any withdrawal symptoms. Patient offers no requests for anything at this time. Patient states that she is being discharged tomorrow. Bed is locked and in lowest position, bed rails are up X 2 and call light within patient's easy reach.
[2017-03-01] MEDS: diphenhydrAMINE 50 MG CAPSULE PO PRN (21:39)
--- NOTE | 2017-03-01 21:39 | NUR ---
PRN MEDICATION: Prn Benadryl 50 mg p.o. given per request for sleep medication.
--- NOTE | 2017-03-01 22:39 | NUR ---
REASSESSMENT PRN MEDICATION: Patient is awake, but lying quietly. Patient states, " I have family stuff going on right now, so I'm a little anxious tonight". Patient denies any pain.
--- NOTE | 2017-03-01 23:03 | NUR ---
PRN MEDICATION: Prn Catapres 0.1 mg p.o. given for increasing anxiety and agitation, CIWA 5.
--- NOTE | 2017-03-02 | NUR ---
Patient sleeping now from PRN Benadryl 50 mg given at 2303. Patient not awakened for V/S at this time, per her request.
--- NOTE | 2017-03-02 00:03 | NUR ---
REASSESSMENT PRN MEDICATION: Patient is resting comfortably with eyes closed and respirations quiet, even, unlabored at 12.
--- NOTE | 2017-03-02 02:30 | NUR ---
Patient awake and in the kitchen for fluids and food snack. Patient states, " My allergies are acting up", but patient exhibits no allergy symptoms ( sneezing, coughing, watery/itchy eyes, change in eupneic respirations, etc.) Patient denies the need for prn neb respiratory treatment.
--- NOTE | 2017-03-02 04:00 | NUR ---
Patient is sleeping comfortably now with respirations quiet, even, unlabored at 12. V/S, CIWA deferred.
--- NOTE | 2017-03-02 06:30 | NUR ---
0630 Patient slept a total of 6 hours and she had 2 voids and no stools. Total intake was 1,500 ml p.o. Prn medications given noted separately per floor protocol. V/SS afebrile, last CIWA 5 at 1999. Patient is presently resting comfortably in stable condition with eyes closed and respirations regular, unlabored at 12.
--- NOTE | 2017-03-02 07:45 | NUR ---
START OF SHIFT NOTE Received report from night nurse, 56 year old female admitted for ETOH dependence. Patient currently not on any taper but PRN'S available for increased s/s of withdrawal. Patient reported PMH of Asthma. Per endorsement pt received PRN Benadryl 50mg, Clonidine 0.1mg effective per night nurse, last CIWA-5, Slept for 6 hours. hours. Patient received awake, alert and oriented x4, Educated patient regarding plan of care for the day and medication regimen with good verbal understanding. Safety measures in place. call light with in reach, will continue to monitor.
[2017-03-02 08:00] VITALS: BP 131/88
[2017-03-02] MEDS: FOLIC ACID 1 MG TABLET PO SCH (08:31)
[2017-03-02] MEDS: MULTIVITAMINS,THERAPEUTIC TABLET PO SCH (08:32)
[2017-03-02] MEDS: SERTRALINE HCL 50 MG TABLET PO SCH (08:32)
[2017-03-02] MEDS: THIAMINE HCL 100 MG TABLET PO SCH (08:32)
[2017-03-02 08:39] VITALS: BP 144/92
[2017-03-02] MEDS: CLONIDINE HCL 0.1 MG TABLET PO PRN (08:39)
--- NOTE | 2017-03-02 08:39 | NUR ---
PRN CLONIDINE Patient blood pressure noted 144/92, PRN Clonidine 0.1mg Po administered as ordered. Will cont to monitor and reassess.
--- NOTE | 2017-03-02 09:29 | NUR ---
CLONIDINE REASSESSMENT Patient blood pressure noted 130/84, medication effective.
[2017-03-02 10:08] LABS: HEPATITIS B SURFACE AG Negative (Negative)
--- NOTE | 2017-03-02 11:23 | NUR ---
DISCHARGE NOTE Patient is in stable condition. Vital signs WNL, Patient is alert oriented x4, Skin intact warm and dry tot touch. Patient denies any SI/HI ideations. All discharge paper work done signed and dated. Patient educated about discharge instructions, Pt verbalized understanding. Patient 's last CIWA score was 2. Patient discharged from [facility] on 03/02/17 at 1123. Patient left the building with all of her belongings and prescriptions, Patient bring medications with her to the unit. has been contracted and notified of Pt's discharge.
== END 2017-03-02 11:23 | disposition home or self-care (01) | DRG 897 ==
LOC: SRC 10:32
PROVIDERS: ADMIT Internal Medicine; ATTEND Internal Medicine
PROC: HZ2ZZZZ Detoxification Services for Substance Abuse Treatment (ICD-10-PCS; principal; 2017-02-28)
DX: F10.230 Alcohol dependence with withdrawal, uncomplicated (principal); K70.10 Alcoholic hepatitis without ascites; F33.1 Major depressive disorder, recurrent, moderate; Y90.9 Presence of alcohol in blood, level not specified; Z80.9 Family history of malignant neoplasm, unspecified; J45.20 Mild intermittent asthma, uncomplicated; Z82.49 Family history of ischemic heart disease and other diseases of the circulatory system; Z81.1 Family history of alcohol abuse and dependence; Z81.8 Family history of other mental and behavioral disorders; Z79.899 Other long term (current) drug therapy; I10 Essential (primary) hypertension; F41.9 Anxiety disorder, unspecified; R73.9 Hyperglycemia, unspecified
CPT/HCPCS: 36415; 80307; 83735; 84703; 85025; 86580; 86592; 86705; 86803; 87340; 87806; 90686; 90732; G0480; J3411; Q0163